=== PATIENT | male | born 1960 | race Hispanic/Latino ===

== ENCOUNTER 2019-09-09 09:42 | Emergency (ER) | payer SELFPAY ==
[2019-09-09] MEDS ORDERED: Morphine 4 MG/ML VIAL ONE (10:03)
[2019-09-09 10:16] LABS: #Eosinphils 0.1 thou/uL (0.0-0.7); #Lymphocytes 1.5 thou/uL (1.20-3.40); #Monocytes 0.4 thou/uL (0.11-0.59); #Neutrophils 4.8 thou/uL (1.40-6.50); %Basophils 0.6 % (0.0-1.0); %Eosinophils 1.4 % (0.0-10.0); %Lymphocytes 22.5 % (21.0-51.0); %Monocytes 5.5 % (0.0-10.0); %Neutrophils 70.1 % (42.0-75.0); Hemoglobin 15.7 g/dL (14.0-18.0); Mean Corpuscular HGB CONC 33.5 g/dL (32.0-36.0); Mean Corpuscular Hemoglobin 31.2 pg (27.0-31.0); Mean Corpuscular Volume 93.2 fL (78.0-98.0); Mean Platelet Volume 7.1 fL (7.4-10.4); Platelet Count 239 thou/uL (130-400); RBC Distribution Width 12.7 % (11.5-14.5); Red Blood Cell (RBC) Count 5.04 mill/uL (4.70-6.10); White Blood Cell (WBC) Count 6.9 thou/uL (4.8-10.8)
[2019-09-09 10:23] LABS: PTT 25.1 SEC (22.9-36.1); Prothrombin Time 12.9 SEC (12.0-14.7)
[2019-09-09 10:37] LABS: ALT (SGPT) 21 U/L (8-55); AST (SGOT) 21 U/L (5-34); Albumin 4.3 g/dL (3.5-5.0); Alcohol Less than 10 mg/dL (Less than 10); Alkaline Phosphatase 108 U/L (40-110); Anion Gap 11 mmol/L (10-20); BUN (Urea Nitrogen) 17 mg/dL (8.4-25.7); Bilirubin, Total 0.5 mg/dL (0.2-1.2); Calc. Creatinine Clearance 0 mL/min (70-130); Calcium 9.3 mg/dL (7.8-10.44); Carbon Dioxide 28 mmol/L (22-29); Chloride 103 mmol/L (98-107); Estimated GFR-MDRD 70; Globulin 3.1 g/dL (2.4-3.5); Glucose 325 mg/dL (70-105); Protein, Total 7.4 g/dL (6.0-8.3); Sodium 138 mmol/L (136-145)
--- NOTE | 2019-09-09 10:42 | RAD ---
AP view of the pelvis INDICATION: Fall COMPARISON: None. FINDINGS: Bones: No acute fracture or subluxation is evident. Bone mineralization appears within normal limits. Hips: Mild degenerative change of both hip joints. SI joints and symphysis pubis: Normal appearing. Intrapelvic contents: Within normal limits. IMPRESSION: No acute osseous abnormality.
--- NOTE | 2019-09-09 10:44 | CT ---
EXAM: CT Lumbar Spine WO Con DATE: 09/09/2019 10:03 AM INDICATION: Fall with back pain COMPARISON: None. FINDING: No acute fracture or subluxation is evident. There is moderate disc degenerative disease an d facet osteoarthritic change at L5-S1 spinal alignment is preserved. Osseous central canal is well maintained. There is a mild left and moderate right osseous neural foraminal narrowing at L5-S1. Visu alized retroperitoneum and paravertebral soft tissues appear within normal limits. There is moderate degenerative change of both SI joints. IMPRESSION:No acute fracture or subluxation demonstrated.
--- NOTE | 2019-09-09 10:45 | CT ---
EXAM: CT Thoracic Spine WO Con DATE: 09/09/2019 10:03 AM INDICATION: Fall with back pain COMPARISON: None. FINDING: No acute fracture or subluxation demonstrated. There is moderate multilevel spondylosis of the thoracic spine. No appreciable osseous central canal or neural foraminal narrowing is demonstrated. Visualized aspects of the lungs demonstrate areas of subsegmental volume loss involving the medial lower lobes. Visualized aspects of the mediastinum and upper abdomen are unremarkable. IMPRESSION:No acute fracture or subluxation demonstrated.
--- NOTE | 2019-09-09 11:10 | RAD ---
2 VIEWS LEFT FOREARM: Date: 09/09/19 HISTORY: Back and forearm pain after fall from a 10-12 ft. ladder. FINDINGS: 2 views of the left forearm show no evidence of acute fracture or dislocation. No degenerative change s are seen. No soft tissue swelling is seen. IMPRESSION: Unremarkable exam. POS: CET
--- NOTE | 2019-09-09 11:21 | RAD ---
SINGLE VIEW CHEST: Date: 09/09/19 COMPARISON: None. HISTORY: Fall from 10-12 ft. ladder with chest pain. FINDINGS: Single view of the chest shows a normal sized cardiomediastinal silhouette. There is no evidence of c onsolidation, mass, or pleural effusion. The bones are unremarkable. IMPRESSION: No evidence of acute cardiopulmonary disease. POS: CET
--- NOTE | 2019-09-09 11:21 | RAD ---
2 VIEWS LEFT HUMERUS: Date: 09/09/19 HISTORY: Fall from 10-12 ft. ladder with left arm pain. FINDINGS: 2 views of the left humerus shows a comminuted fracture of the left humeral neck. This involves the g reater tuberosity. Surrounding soft tissue swelling is seen. No dislocation is seen. IMPRESSION: Comminuted left humeral neck fracture. POS: CET
[2019-09-09] MEDS ORDERED: HYDROcodone/Acetaminophen 5/325 mg Tablet ONE (12:02)
[2019-09-09] MEDS ORDERED: Ondansetron ODT 4 MG TAB ONE (13:47)
== END 2019-09-09 14:06 | disposition home or self-care (01) ==
LOC: ERS 09:42
DX: S42.212A Unspecified displaced fracture of surgical neck of left humerus, initial encounter for closed fracture (principal); I95.9 Hypotension, unspecified; Z79.84 Long term (current) use of oral hypoglycemic drugs; W17.89XA Other fall from one level to another, initial encounter
CPT/HCPCS: 71045; 72128; 72131; 72170; 80053; 80307; 85025; 85610; 85730; 96374; J2270; L0120; Q0162

== ENCOUNTER 2019-09-15 14:55 | Emergency (ER) | payer SELFPAY ==
[2019-09-15] MEDS ORDERED: HYDROcodone/Acetaminophen 10/325 mg Tablet ONE (18:17)
== END 2019-09-15 18:44 | disposition home or self-care (01) ==
LOC: ERS 14:55
DX: S40.022A Contusion of left upper arm, initial encounter (principal); E11.9 Type 2 diabetes mellitus without complications; Z76.0 Encounter for issue of repeat prescription; W11.XXXA Fall on and from ladder, initial encounter
CPT/HCPCS: 99283